=== PATIENT | female | born 1980 | race Caucasian/White ===

== ENCOUNTER 2020-11-02 12:00 | Outpatient (REF) | payer MEDICARE, MEDICAID, SELFPAY ==
[2020-11-02 14:30] LABS: MANUAL DIFF FLAG NO
[2020-11-02 14:34] LABS: Basophils Percent Auto 0.4 % (0-2); Eosinophils Absolute Auto 0.1 X10*3/uL (0.0-0.4); Eosinophils Percent Auto 0.8 % (0-4); Hematocrit 44.5 % (37-47); Hemoglobin 13.9 g/dl (12.0-16.0); Imm Gran Abs Auto 0.06 X10*3/uL (0.00-0.03); Imm Gran Pct Auto 0.6 % (0.0-0.4); Lymphocytes Absolute Auto 1.3 X10*3/uL (1.2-4.9); Lymphocytes Percent Auto 13.6 % (20-40); Mean Corpuscular HGB Conc 31.2 g/dl (31.0-35.0); Mean Corpuscular Hemoglobin 27.4 pg (27.0-33.0); Mean Corpuscular Volume 87.8 fL (80-98); Monocytes Absolute Auto 0.6 X10*3/uL (0.1-1.2); Monocytes Percent Auto 6.3 % (2-11); Neutrophils Absolute Auto 7.5 X10*3/uL (2.0-8.3); Neutrophils Percent Auto 78.3 % (45-73); Platelet Count 383 X10*3/uL (160-400); Red Blood Count 5.07 X10*6/uL (4.20-5.50); Red Cell Distribution Width 14.3 % (11.0-16.0); White Blood Count 9.5 X10*3/uL (4.8-10.8)
[2020-11-02 15:03] LABS: Alanine Aminotransferase 64 U/L (0-31); Albumin Level 4.3 g/dL (3.5-5.0); Alkaline Phosphatase 134 U/L (39-117); Anion Gap 16 (12-20); Aspartate Amino Transferase 36 U/L (5-31); Bilirubin Total 0.4 mg/dL (0.0-1.0); Blood Urea Nitrogen 14 mg/dL (9-16); Calcium 9.5 mg/dL (8.4-10.2); Carbon Dioxide 23 mmol/L (22-29); Chloride 103 mmol/L (96-108); Estimated Glomerular Filt Rate > 60; Glucose Random 95 mg/dL (60-115); Potassium 4.7 mmol/l (3.3-5.1); Sodium 137 mmol/L (135-145); Total Protein 8.2 g/dL (6.5-8.0)
[2021-01-05 11:57] LABS: HCV Log PCR <1.18 NOT DETECTED; HepC Viral Load <15 NOT DETECTED
== END 2020-11-02 12:01 | disposition home or self-care (01) ==
LOC: HO.LAB 12:00
PROVIDERS: PCP Nurse Practitioner Family; Visit Provider Nurse Practitioner
DX: B18.2 Chronic viral hepatitis C (principal)
CPT/HCPCS: 36415; 80053; 85025; 87522

== ENCOUNTER → 2020-11-04 11:18 | Outpatient (BNVA) | payer MEDICARE, MEDICAID, SELFPAY | PROVIDERS: PCP Family Medicine; Visit Provider Nurse Practitioner | DX: B18.2 Chronic viral hepatitis C (principal) | CPT/HCPCS: Q3014 ==

== ENCOUNTER 2021-01-06 14:46 | Outpatient (REF) | payer MEDICARE, MEDICAID, SELFPAY ==
[2021-01-09 08:12] LABS: HCV Log PCR <1.18 NOT DETECTED Log IU/mL (NOT DETECTED); HepC Viral Load <15 NOT DETECTED IU/mL (NOT DETECTED)
== END 2021-01-06 14:47 | disposition home or self-care (01) ==
LOC: HO.LAB 14:46
PROVIDERS: PCP Nurse Practitioner Family; Visit Provider Nurse Practitioner
DX: B18.2 Chronic viral hepatitis C (principal)
CPT/HCPCS: 36415; 87522

== ENCOUNTER → 2021-01-20 11:27 | Outpatient (BNVA) | payer MEDICARE, MEDICAID, SELFPAY | PROVIDERS: PCP Nurse Practitioner Family; Visit Provider Nurse Practitioner | DX: Z13.89 Encounter for screening for other disorder (principal) | CPT/HCPCS: Q3014 ==

== ENCOUNTER 2021-07-26 10:46 | Outpatient (REF) | payer MEDICARE, MEDICAID, SELFPAY ==
[2021-07-26 12:46] LABS: Alanine Aminotransferase 28 U/L (0-31); Albumin Level 3.7 g/dL (3.5-5.0); Alkaline Phosphatase 104 U/L (39-117); Aspartate Amino Transferase 27 U/L (5-31); Bilirubin Direct < 0.2 mg/dL (0.0-0.5); Bilirubin Total 0.3 mg/dL (0.0-1.0); Total Protein 6.8 g/dL (6.5-8.0)
[2021-07-27 22:57] LABS: HCV Log PCR <1.18 NOT DETECTED Log IU/mL (NOT DETECTED); HepC Viral Load <15 NOT DETECTED IU/mL (NOT DETECTED)
== END 2021-07-26 10:47 | disposition home or self-care (01) ==
LOC: HO.LAB 10:46
PROVIDERS: Visit Provider Nurse Practitioner
DX: B18.2 Chronic viral hepatitis C (principal)
CPT/HCPCS: 36415; 80076; 87522

== ENCOUNTER → 2021-09-02 08:40 | Outpatient (BNVA) | payer MEDICARE, MEDICAID, SELFPAY | PROVIDERS: Visit Provider Nurse Practitioner | CPT/HCPCS: 99212 ==

== ENCOUNTER 2024-12-15 10:59 | Outpatient (REF) | payer MEDICARE, MEDICAID, SELFPAY ==
[2024-12-15 12:44] LABS: Erythrocyte Sedimentation Rate 23 MM/HR (0-20)
[2024-12-16 18:13] LABS: Lyme Abs Screen <0.90 index
== END 2024-12-15 11:00 | disposition home or self-care (01) ==
LOC: HO.LAB 10:59
PROVIDERS: PCP Family Medicine; Visit Provider Psychiatry & Neurology Neurology
DX: G43.009 Migraine without aura, not intractable, without status migrainosus (principal)
CPT/HCPCS: 36415; 85652; 86617; 86618

== ENCOUNTER 2024-12-30 08:24 | Outpatient (REF) | payer MEDICARE, MEDICAID, SELFPAY ==
--- NOTE | ~2024-12-30 | MR_ITS ---
CLINICAL HISTORY: MIGRAINE W AURA MR Brain without gadolinium Comparison: None Findings: No restricted diffusion. No intracranial mass or hemorrhage. No midline shift. No hydrocephalus. Vascular flow voids are intact. The orbits are normal. There is chronic right maxillary sinusitis. No focal bone lesion. IMPRESSION: Normal brain. Chronic right maxillary sinusitis. This document has been electronically signed by: Brady Veloz MD on 12/30/2024 13:17:58
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
--- OUTSIDE RECORDS SUMMARY | 2024-12-30 08:48 | XMS_ITS | Encounter Summary ---
Author Organization [employer] Address [address] [facility] [address] [place] [address] Care Team Providers Care Clinic Licensed Practical Nurse Name Role Phone Lidia Mendoza MD Primary Care Provider [phone] Encounter Details Date Type Department Care Team (Late st Contact Info) Description 12/01/2024 Telephone [facility] Information Management [address] [place] [address] Lidia Mendoza MD [address] [place] [address] Social History Tobacco Use Types Packs/Day Years Used Date Smoking Tobacco: Never Assessed Smokeless Tobacco: Current Depression Answer Date Recorded Patient Health Questionnaire-9 [...] Orientation Straight 09/04/2022 10 :18 AM EDT documented as of this encounter Miscellaneous Notes * Telephone Encounter - Fariba Jauregui LPN - 12/03/2024 9:20 AM EST Call placed to pt via section repairer [phone]. This number is not in service. * Telephone Encounter - Fariba Jauregui LPN - 12/02/2024 8:32 AM EST Call placed to pt via section repairer [id number]. This number is not currently in service . * Telephone Encounter - Fariba Jauregui LPN - 12/01/2024 11:12 AM EST Call placed to patient via section repairer [phone] to discuss recent ED visit and offer office visit. This number is currently unavailable . Date of ER visit: 11/28/24 Discharge date: 11/28/24 Hospital: [facility] Records on file: yes Discharge diagnosis: vaginal bleeding, hemorrhagic cyst, fibroid Patient described events as: vaginal bleeding x 3 days Follow-up scheduled: Attempted to call pt via section repairer [phone]. * Telephone Encounter - Fariba Jauregui LPN - 12/01/2024 11:09 AM EST Images from the original note were not included. Fariba Cross [facility] 12/01/24 10:44 AM Pt was seen at [facility] 11/28, note attached. documented in this encounter Plan of Treatment Not on file documented as of this encounter Visit Diagnoses Not on filedocumented in this encounter Additional Health Concerns Assessment Noted Time PHQ-9 Depression Total Score: 19 024 1:13 PM EDT documented as of this encounter Care Teams Clinic Licensed Practical Nurse Relationship Specialty Start Date End Date Lidia Mendoza MD [address] [facility] [place] [address] PCP - General Family Medicine 02/13/24 documented as of this encounter
== END 2024-12-30 08:25 | disposition home or self-care (01) ==
LOC: HO.MRI 08:24
PROVIDERS: PCP Family Medicine; Visit Provider Psychiatry & Neurology Neurology
DX: G43.009 Migraine without aura, not intractable, without status migrainosus (principal)
CPT/HCPCS: 70551

== ENCOUNTER → 2024-12-30 08:30 | Outpatient (BNV) | payer MEDICARE, MEDICAID, SELFPAY | PROVIDERS: PCP Family Medicine; Visit Provider Radiology Diagnostic Radiology | DX: G43.009 Migraine without aura, not intractable, without status migrainosus (principal) | CPT/HCPCS: 70551 ==

== ENCOUNTER 2025-07-22 13:28 | Outpatient (AMB) | payer MEDICARE, MEDICAID, SELFPAY ==
--- NOTE | 2025-07-22 13:35 | MHC.OFFVIS ---
Intake Visit Reasons: 6 Months/ migranes Allergies bupropion (From Wellbutrin) Allergy (Verified 09/02/21 08:42) Rash peanut Allergy (Verified 09/02/21 08:42) throat swelling, SOB quetiapine (From Seroquel) Allergy (Verified 09/02/21 08:42) Rash risperidone Allergy (Verified 09/02/21 08:42) Rash fish Allergy (Uncoded 11/04/20 11:21) throat swelling, SOB HPI Comments Details: The patient is a 44-year-old female with behavioral disorder and chronic migraine without aura type of headaches. Last time she was prescribed Depakote 250 mg, which helped her an headache frequency has significantly diminished. She was also using sumatriptan as needed and was happy with the regimen. [facility] Medical History (Updated 07/22/25 @ 13:39 by Leland Adams MD) Depression with anxiety Obesity Migraine without aura Miscarriage Surgical History History of salpingectomy Hx of wisdom tooth extraction Hx of cholecystectomy Family History Father No problems noted. Mother No problems noted. Other Arthritis Cataracts, bilateral Social History Household Members: Spouse Alcohol intake: current Alcohol intake frequency: does not drink Current occupational status: disabled Review of Systems Const Details: - Neurological/Behavioral: Reports insomnia, anxiety; Denies additional neurological symptoms - Psychiatric: Reports taking methadone for opioid dependence, uses Clonidine for anxiety management - General/Musculoskeletal: Denies additional medications or symptoms not mentioned in the conversation Physical Exam Neuro Other: Mental Status: Alert and oriented to person, place, and time. Normal attention. Normal spontaneous speech, fluency, and comprehension. No obvious issues with mood and memory. Affect is appropriate. Cranial Nerves: CN II: Visual reis full to confrontation, visual acuity intact. CN III, IV, : Pupils equal, round, reactive to light and accommodation. Extraocular movements are normal. CN V: Facial sensation is normal. CN VII: Facial movements symmetrical. CN VIII: Hearing intact to bedside conversation is normal. CN IX, X: Palate elevates symmetrically. CN XI: Shoulder shrug and head turn symmetrical. CN XII: Tongue midline without atrophy or fasciculations. Extrapyramidal: Full facial expressions and blinking. No rigidity. Movements are appropriate with no tremor or abnormality. Speech: Normal; no dysarthria or tremor. Assessment & Plan Assessment & Plan (1) Migraine without aura: Comment: Meds tried: Topiramate, cyclobenzaprine, propranolol, verapamil MRI brain WO at [facility] in Dec 2024: [place] Code(s): G43.009 - Migraine without aura, not intractable, without status migrainosus Category: Medical Qualifiers: Status migrainosus presence: without status migrainosus Intractability: intractable Qualified Code(s): G43.019 - Migraine without aura, intractable, without status migrainosus Plan Impression recommendations: Migraine without aura with significant underlying behavioral disorder including diagnoses of depression PTSD, also taking methadone, was better with Depakote and sumatriptan. Prescriptions were renewed. Medications: New divalproex 250 mg orally one at bedtime; 90 tabs 1RF Refilled sumatriptan succinate 50 mg orally one a day as needed PRN; do not exceed 4 doses per 24 hrs 10 tabs 5RF migraine headache 30 days Coding Level of Care Code Est Pt Level 4 (97793) Diagnoses Intractable migraine without aura and without status migrainosus G43.019 Status migrainosus presence: without status migrainosus Intractability: intractable
--- OUTSIDE RECORDS SUMMARY | 2025-07-22 17:19 | XMS_ITS | Encounter Summary ---
Author Organization [email or web address] Address [address] [place] [address] 7 [place] [address] Care Team Providers Care Oracle Database Administrator Name Role Phone Lidia Mendoza MD Primary Care Provider [phone] Encounter Details Date Type Department Care Team (Late st Contact Info) Description 12/30/2024 Orders Only [facility] Information Management [address] [place] [address] Lidia Mendoza MD [address] [place] [address] Social History Tobacco Use Types Packs/Day Years [...] AM EDT documented as of this encounter Plan of Treatment Upcoming Encounters Date Type Department Care Team (Late st Contact Info) Description 08/26/2025 12:20 PM EDT Office Visit [facility] MEDICAL [address] [place] [address] Lidia Mendoza MD [address] [place] [address] documented as of this encounter Procedures Procedure Name Priority Date/Time Associated Diagnosis Comments MRI BRAIN WO CONTRAST Routine 12/30/2024 2:26 PM EST documented in this encounter Results * MRI BRAIN WO CONTRAST (12/30/2024 2:26 PM EST) Anatomical Region Laterality Modality Magnetic Resonan ce us Lidia Mendoza MD IMG MRI PROCEDURES Final Resul t documented in this encounter Visit Diagnoses Not on filedocumented in this encounter Additional Health Concerns Assessment Noted Time PHQ-9 Depression Total Score: 19 024 1:13 PM EDT documented as of this encounter Care Teams Oracle Database Administrator Relationship Specialty Start Date End Date Lidia Mendoza MD [address] [place] [address] PCP - General Family Medicine 02/13/24 documented as of this encounter
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
== END 2025-07-22 13:52 | disposition home or self-care (01) ==
LOC: HO.HSM 13:29
PROVIDERS: PCP Family Medicine; Referring Provider Family Medicine; Visit Provider Psychiatry & Neurology Neurology
DX: G43.019 Migraine without aura, intractable, without status migrainosus (principal)
CPT/HCPCS: 99214

== ENCOUNTER → 2025-07-22 13:28 | Outpatient (BNVA) | payer MEDICARE, MEDICAID, SELFPAY | PROVIDERS: PCP Family Medicine; Referring Provider Family Medicine; Visit Provider Psychiatry & Neurology Neurology | DX: G43.019 Migraine without aura, intractable, without status migrainosus (principal) | CPT/HCPCS: 99212 ==